=== PATIENT | male | born 1930 | race African-American/Black ===

== ENCOUNTER 2016-10-17 13:44 | Emergency (ER) | payer MEDICARE ==
[~2016-10-17] VITALS: Ht 185.4 cm; Wt 77.0 kg
[2016-10-17] MEDS ORDERED: FINA5TAB41 PO (14:17)
[2016-10-17 14:22] VITALS: BP 143/85
== END 2016-10-17 14:43 | disposition home or self-care (01) ==
LOC: EMS 13:45
DX: R33.9 Retention of urine, unspecified (principal)
CPT/HCPCS: 99281